=== PATIENT | female | born 1930 | race Caucasian/White ===

== ENCOUNTER 2016-07-04 | Outpatient (CLI) | payer MEDICARE | END 2016-07-04 00:09 | disposition critical access hospital (66) | CPT/HCPCS: A0425; A0429 ==

== ENCOUNTER 2016-07-04 00:22 | Emergency (ER) | payer MEDICARE ==
[2016-07-04] MEDS ORDERED: BUPIVACAINE 0.5%-EPI 1:200000 PF 10 ML VIAL SUBQ STA (00:27)
[2016-07-04] MEDS ORDERED: TETANUS/DIPHTHERIA/PERTUSSIS 0.5 ML SYRINGE IM ONE ×2 (00:27→00:31)
[2016-07-04] MEDS ORDERED: BUPIVACAINE 0.5%-EPI 1:200000 PF 30 ML VIAL ONE (00:31)
== END 2016-07-04 05:23 | disposition home or self-care (01) ==
DX: S81.812A Laceration without foreign body, left lower leg, initial encounter (principal); W06.XXXA Fall from bed, initial encounter; W22.8XXA Striking against or struck by other objects, initial encounter; Z23 Encounter for immunization; R03.0 Elevated blood-pressure reading, without diagnosis of hypertension; G20 Parkinson's disease

== ENCOUNTER 2017-06-03 08:00 | Outpatient (CLI) | payer MEDICARE ==
[2017-06-03 13:53] LABS: BASOPHILS % (AUTO) 0.6 %; EOSINOPHILS # (AUTO) 0.1 10^3/uL (0.0-0.7); EOSINOPHILS % (AUTO) 2.2 %; HGB - HEMOGLOBIN 12.4 g/dL (12.0-16.0); LYMPHOCYTES # (AUTO) 1.3 10^3/uL (1.5-3.5); LYMPHOCYTES % (AUTO) 22.8 %; MEAN CORPUSCULAR HEMOGLOBIN 32.5 pg (27.0-31.0); MEAN CORPUSCULAR HGB CONC 33.9 g/dL (32.0-36.0); MEAN PLATELET VOLUME 9.1 fL (7.9-10.8); MONOCYTES # (AUTO) 0.6 10^3/uL (0.0-1.0); MONOCYTES % (AUTO) 9.9 %; NEUTROPHILS # (AUTO) 3.7 10^3/uL (1.5-6.6); NEUTROPHILS % (AUTO) 64.5 %; PLT - PLATELET COUNT 199 10^3/uL (130-450); RED BLOOD COUNT 3.82 10^6/uL (4.20-5.40); WHITE BLOOD COUNT 5.7 x10^3/uL (4.8-10.8)
[2017-06-03 14:03] LABS: ALBUMIN 3.5 g/dL (3.2-5.5); ALKALINE PHOSPHATASE 67 IU/L (42-121); ALT ALANINE AMINOTRANSFERASE < 10 IU/L (10-60); AST ASPARTATE AMINOTRANSFERASE 15 IU/L (10-42); BILIRUBIN,TOTAL 0.6 mg/dL (0.2-1.0); BUN - BLOOD UREA NITROGEN 41 mg/dL (6-20); CARBON DIOXIDE - CO2 27 mmol/L (21-32); CHLORIDE 103 mmol/L (101-111); CREATININE 1.3 mg/dL (0.4-1.0); GFR - MDRD 39 (>89); GLUCOSE 83 mg/dL (70-100); LDL CHOLESTEROL,DIRECT 87 mg/dL; SODIUM 139 mmol/L (135-145); TOTAL PROTEIN 6.9 g/dL (6.7-8.2)
== END 2017-06-03 08:01 | disposition home or self-care (01) ==
LOC: LAB.R 08:00
PROVIDERS: ATTEND Internal Medicine
DX: G20 Parkinson's disease (principal); E78.5 Hyperlipidemia, unspecified; I10 Essential (primary) hypertension
CPT/HCPCS: 80053; 83721; 85025

== ENCOUNTER 2017-09-29 15:04 | Outpatient (CLI) | payer MEDICARE ==
[2017-09-29 15:36] LABS: CREATININE 1.5 mg/dL (0.4-1.0)
== END 2017-09-29 15:05 | disposition home or self-care (01) ==
LOC: LAB 15:04
PROVIDERS: ATTEND Internal Medicine
DX: R60.9 Edema, unspecified (principal)
CPT/HCPCS: 36415; 80048

== ENCOUNTER 2017-11-12 08:28 | Emergency (ER) | payer MEDICARE ==
--- NOTE | 2017-11-12 09:34 | ED Physician Documentation ---
PD HPI LOWER EXT INJURY - Stated complaint Stated Complaint: LEFT LEG LAC - Chief complaint Chief Complaint: Laceration - History obtained from History obtained from: Patient, Family - History of Present Illness PD HPI LOW EXT INJURY LOCATION: Left, Lower leg Type of injury: Fall Where injury occurred: Home Timing - onset: Enter time (0600), Today Timing - duration: Hours Timing - details: Abrupt onset, Still present Improved by: Rest, Immobilization Worsened by: Moving, Palpating Associated symptoms: Swelling. 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 She has very thin skin over massively swollen lower extremities. She has had a similar situation over a year ago and at that time required wrapping of her legs for some time to reduce the swelling. She is currently on some furosemide for her swelling. She has not been using compression dressing recently. Review of Systems Constitutional: denies: Fever Eyes: denies: Decreased vision Nose: denies: Congestion Throat: denies: Sore throat Respiratory: denies: Cough GI: denies: Vomiting : reports: Incontinent PD PAST MEDICAL HISTORY - Past Medical History Cardiovascular: High cholesterol - Past Surgical History Past Surgical History: Yes Derm: Skin cancer surgery - Present Medications Home Medications: Ambulatory Orders Medication Instructions Recorded Confirmed Acetaminophen 325 mg 11/12/17 Carbidopa/Levodopa [Carbidopa-Levo 1 tab 11/12/17 ER 25-100 Tab] Furosemide [Lasix] 40 mg 11/12/17 Metoprolol Tartrate 25 mg 11/12/17 Nystatin/Triamcin 11/12/17 [Nystatin-Triamcinolone Ointm] Potassium Chloride 10 meq 11/12/17 Pravastatin [Pravachol] 40 mg 11/12/17 - Allergies Allergies/Adverse Reactions: Allergies Allergy/AdvReac Type Severity Reaction Status Date / Time No Known Drug Allergies Allergy Verified 07/04/16 00:29 - Social History Does the pt smoke?: No Smoking Status: Never smoker Does the pt drink ETOH?: No Does the pt have substance abuse?: No - Immunizations Immunizations are current?: No Immunizations: TDAP >10years/unknown - POLST Patient has POLST: No PD ED PE NORMAL - Vitals Vital signs reviewed: Yes (normal ) - General General: Alert and oriented X 3, No acute distress, Well developed/nourished - HEENT HEENT: Atraumatic, PERRL, EOMI - Respiratory Respiratory: No respiratory distress - Derm Derm: Normal color, Warm and dry - Extremities Extremities: Other (There is marked LE swelling with pitting edema and weeping skin. There is no sign of infection. There are 2 flap lacerations to the upper lateral cafl on the left side about 7cm total. ) - Neuro Neuro: No motor deficit, No sensory deficit, Normal speech Eye Opening: Spontaneous Motor: Obeys Commands Verbal: Oriented GCS Score: 15 - Psych Psych: Normal mood, Normal affect Results - Vitals Vitals: Vital Signs - 24 hr 11/12/17 08:46 Temperature 36.0 C L Heart Rate 64 Respiratory 18 Rate Blood Pressure 129/73 O2 Saturation 95 Oxygen O2 Source Room air Procedures - Laceration (location) left calf Length in cm: 7 Wound type: Irregular, Flap, Clean Neurovascular status: Sensory intact, Motor intact, Vascular intact Wound Preparation: Hibiclens, Irrigated copiously NS, Wound explored, To the base Skin layer closure: Dermabond, Steri strips Other: Patient tolerated well, No complications, Neurovascular intact, Dressing applied, Tetanus UTD PD MEDICAL DECISION MAKING - ED course Complexity details: reviewed old records, considered differential, d/w patient, d/w family ED course: 87-year-old female with skin tears to her left upper calf on massively swollen legs has flap lacerations that do not appear to be able to hold suture. The skin is reapproximated and tincture benzoin is applied as well as Steri-Strips and over the top of this Dermabond. Following this health is placed over the wound and the legs are wrapped caudad to cephalad. - Sepsis Event Vital Signs: Vital Signs - 24 hr 11/12/17 08:46 Temperature 36.0 C L Heart Rate 64 Respiratory 18 Rate Blood Pressure 129/73 O2 Saturation 95 Oxygen O2 Source Room air Departure - Departure Disposition: 01 Home, Self Care Clinical Impression: Laceration of leg Qualifiers: Encounter type: initial encounter Laterality: left Qualified Code(s): S81.812A - Laceration without foreign body, left lower leg, initial encounter Condition: Stable Instructions: ED Laceration Ext Sutr Stap Tape Follow-Up: Trever Yap MD [Primary Care Provider] - Comments: Use a non-adherent dressing to the calf and wrap both legs daily from foot to knee for compression. Do not bathe the area of the wound on the left calf for 6 days.
[2017-11-12 10:47] VITALS: BP 178/70
== END 2017-11-12 10:48 | disposition home or self-care (01) ==
LOC: ED 08:28
DX: S81.812A Laceration without foreign body, left lower leg, initial encounter (principal); I89.0 Lymphedema, not elsewhere classified; Z85.828 Personal history of other malignant neoplasm of skin; W06.XXXA Fall from bed, initial encounter; Y92.099 Unspecified place in other non-institutional residence as the place of occurrence of the external cause
CPT/HCPCS: 12002; 12004; 99282; 99283